=== PATIENT | male | born 1985 | race African-American/Black ===

== ENCOUNTER 2017-06-21 00:48 | Emergency (ER) | payer OTHER, SELFPAY ==
--- NOTE | 2017-06-21 07:33 | RAD ---
THREE VIEWS LEFT HAND: Date: 06-21-17 History: Hit back of hand on door jam, swelling and pain. FINDINGS: There is mild subcutaneous soft tissue swelling seen at the dorsal aspect of the hand at the level of the distal metacarpals. There is no fracture, dislocation, or other osseous abnormality. IMPRESSION: Subcutaneous soft tissue swelling without evidence of an acute osseous abnormality. POS: [facility]
== END 2017-06-21 01:20 | disposition home or self-care (01) ==
LOC: SCSER 00:48
DX: S60.222A Contusion of left hand, initial encounter (principal); W01.198A Fall on same level from slipping, tripping and stumbling with subsequent striking against other object, initial encounter; Y92.009 Unspecified place in unspecified non-institutional (private) residence as the place of occurrence of the external cause